=== PATIENT | male | born 1955 | race African-American/Black ===

== ENCOUNTER 2016-05-22 08:39 | Emergency (ER) | payer SELFPAY ==
[2016-05-22 08:57] VITALS: TEMP 97.6; BMI 21.9
[2016-05-22] MEDS ORDERED: Lidocaine 2%-Epinephrine 1:100,000 20ml vial INF ONE (09:36)
--- NOTE | 2016-05-22 09:38 | EDPRACDOC ---
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 NO NUMBNESS TINGLING WEAKNESS TO HIS HANDS, ALL FINGERS MOVE WELL. LAST TETANUS SHOT IS UNKNOWN. ED Past Medical History - History Reviewed Yes Nurses notes reviewed and agree except as marked No Past Medical History: Yes Patient has no past medical history - Patient Medical History Systemic History: Denies: Cancer Surgical History: Reports: No Significant History - Social Medical History ETOH: None Substance Abuse: None Lives With: Family Lives In: Home EDM Review of Systems - Review of Systems ROS Negative Except as Marked: Yes All systems reviewed and were negative except as marked - Physical Exam Constitutional: No apparent distress, Alert Last recorded Vital Signs: Last Vital Signs Temp 97.6 F 05/22/16 08:51 Pulse 60 05/22/16 08:51 Resp 18 05/22/16 08:51 BP 116/56 L 05/22/16 08:51 Pulse Ox 99 05/22/16 08:51 Oxygen Pulse Oxygen Saturation 99 O2 Device Oxygen Flow Rate Fraction of Inspired Oxygen ( FIO2) - Musculoskeletal Extremities: Other (APPROXIMATELY 10 CM CURVILINEAR SIMPLE LACERATION OVER THE DISTAL LEFT FOREARM / WRIST. STARTS LATERAL/RADIAL PROXIMAL BUT OCCURS CENTRALLY IT APPROACHES THE WRIST. PATIENT STATES HE WAS HEMOSTATIC ON SITE. HE HAS NO NUMBNESS TINGLING WEAKNESS MOVES FINGERS AND WRIST WELL. WOUND EXPLORATION DEMONSTRATES THE RADIAL ARTERIES BEEN NICKED THERE IS SOME PULSATILE HEMORRHAGE ASSOCIATED WITH THIS. THIS IS CONTROL WITH HEMOSTASIS AND APPLICATION OF TOURNIQUET. FLEXOR DIGITORUM PROFUNDUS AND SUPERFICIALIS INTACT ALL 4 FINGERS WELL THE WELL THUMB APPOSITION OF THUMB TO THE PINKY FINGERS WITHIN NORMAL LIMITS. THE RADIAL ARTERY AND ULNAR ARTERY ARE 2+ SENSATION NORMAL IN THE RADIAL ULNAR MEDIAN NERVE DISTRIBUTION.) - Integumentary Skin: Other - Neurologic Memory Impaired: Normal Motor Function: Normal Mood Description: Normal, Appropriate. negative: Anxious ED Procedures - Suture/Laceration Suture #1 Left Wrist Wound Length (cm): 10 Wound's Depth, Shape: superficial, linear Wound Explored: clean Betadine Prep?: Yes Anesthesia: Lidocaine w/ Epi Wound Debrided: minimal Wound Undermining: minimal Wound Margins: Flaps aligned Wound Repaired With: Sutures Suture Size/Type: 3:0, prolene Number of Sutures: 18 (SIMPLE INTERRUPTED) Progress: PULSATILE ARTERIAL BLEEDING OCCURRED DURING WOUND CLEANING. THIS WAS TREATED WITH BLOOD PRESSURE, MINOR BLOOD PRESSURE CUFF WAS USED A TOURNIQUET AND ELEVATION. PRESSURE WAS HELD FOR APPROXIMATELY 5-10 MINUTES AND THEN SUTURED CLOSED. TOTAL TOURNIQUET TIME WAS LESS THAN 20 MINUTES. PATIENT TOLERATED PROCEDURE WELL NO COMPLICATIONS. AFTERWARDS PRESSURE BANDAGE WAS APPLIED EXTREMITY WAS ELEVATED OBSERVED FOR APPROXIMATELY 30 MINUTES NO SIGNIFICANT FURTHER BLEEDING AT THIS TIME. THERE HAS BEEN NO ACCUMULATION OF HEMATOMA IN THE SOFT TISSUES OF THE WRIST. - Departure Disposition: Home Final Diagnosis: LEFT WRIST COMPLEX LACERATION 10 CM Injury of left radial artery Qualifiers: Encounter type: initial encounter Qualified Code(s): S55.102A - Unspecified injury of radial artery at forearm level, left arm, initial encounter Instructions: Care For Your Stitches (ED) Education/Counseling Given To: Patient Education/Counseling Given Regarding: Diagnosis, Treatment, Prognosis Prescriptions: Hydrocodone Bit/Acetaminophen [Hydrocodon-Acetaminophen 5-325] 1 - 2 tab PO Q6H PRN #14 tab PRN Reason: Pain Additional Instructions: STITCHES OUT THIS ED IN 10 DAYS. KEEP ARM ELEVATED ABOVE THE HEART FOR NEXT DAY. KEEP CLEAN AND DRY FOR SEVERAL DAYS.
--- NOTE | 2016-05-22 10:16 | DIRPT ---
CLINICAL DATA: Volar left wrist laceration which occurred while cutting stone today. EXAM: LEFT WRIST - COMPLETE 3+ VIEW COMPARISON: None. FINDINGS: Laceration is seen in the volar soft tissues of the left wrist. No fracture or radiopaque foreign body is identified. No dislocation. IMPRESSION: Laceration without underlying fracture or foreign body. Electronically Signed By: Abhijeet Salas M.D. On: 05/22/2016 10:13
[2016-05-22] MEDS ORDERED: TETANUS-DIPTHERIA-ACEL PERTUSS 0.5 ML SYR IM ONE (11:10)
[2016-05-22 13:29] VITALS: BP 126/52; PULSE 74
== END 2016-05-22 13:25 | disposition home or self-care (01) ==
LOC: ED 08:39
DX: S61.512A Laceration without foreign body of left wrist, initial encounter (principal); S55.112A Laceration of radial artery at forearm level, left arm, initial encounter; W45.8XXA Other foreign body or object entering through skin, initial encounter; Z23 Encounter for immunization
CPT/HCPCS: 13121; 13122; 73110; 90471; 90715; 99282; J3490; 12004